=== PATIENT | female | born 1980 | race Asian ===

== ENCOUNTER 2017-02-20 06:11 | Inpatient (IN) | payer OTHER ==
[2017-02-20] MEDS ORDERED: OXYTOCIN* 10 UNITS/ML 1 ML VIAL IM ONE (07:06)
[2017-02-20] MEDS ORDERED: Varicella Virus Vaccine Live* 0.5 ML VIAL SUBCUT ONE (07:06)
[2017-02-20] MEDS ORDERED: Acetaminophen TAB* 325 MG PO PRN (07:06)
[2017-02-20] MEDS ORDERED: Dibucaine 1% 28.35 GM TUBE PR PRN (07:06)
[2017-02-20] MEDS ORDERED: Glycerin ADULT SUPP PR PRN (07:06)
[2017-02-20] MEDS ORDERED: Witch Hazel PAD* JAR TOPICAL PRN (07:06)
[2017-02-20] MEDS: Docusate CAP* 100 MG PO SCH ×3 (12:16→20:58)
[2017-02-20] MEDS: Ibuprofen TAB* 600 MG PO PRN ×2 (12:17→19:24)
[2017-02-20] MEDS: Simethicone TAB* 80 MG TAB.CHEW PO SCH ×2 (13:12→13:13)
[2017-02-21 06:59] LABS: Hematocrit 33 % (35-47); Hemoglobin 11.1 g/dl (12.0-16.0); Mean Corpuscular HGB Conc 34 g/dl (31-36); Mean Corpuscular Hemoglobin 31 pg (27-31); Mean Corpuscular Volume 90 fL (80-97); Mean Platelet Volume 8 um3 (7.4-10.4); Red Blood Count 3.63 10^6/ul (4.0-5.4); Red Cell Distribution Width 13 % (10.5-15); White Blood Count 12.9 10^3/ul (3.5-10.8)
[2017-02-21] MEDS: Ibuprofen TAB* 600 MG PO PRN ×2 (08:09→21:21)
[2017-02-21] MEDS: Docusate CAP* 100 MG PO SCH ×3 (08:09→21:21)
[2017-02-21] MEDS ORDERED: Ferrous Gluconate TAB* 324 MG TAB PO SCH (09:00)
[2017-02-21] MEDS: predniSONE TAB* 20 MG PO SCH (10:55)
[2017-02-21] MEDS ORDERED: Artificial Tears* 15 ML BTL BOTH EYES PRN (11:50)
[2017-02-22 08:23] VITALS: BP 113/69
[2017-02-22] MEDS: Docusate CAP* 100 MG PO SCH (09:14)
[2017-02-22] MEDS: Ibuprofen TAB* 600 MG PO PRN (09:15)
[2017-02-22] MEDS: predniSONE TAB* 20 MG PO SCH (09:25)
== END 2017-02-22 10:42 | disposition home or self-care (01) | DRG 775 ==
LOC: MCHOBOUT 06:11 → MCHOB 06:19
PROVIDERS: ADMIT Obstetrics & Gynecology; ATTEND Obstetrics & Gynecology
PROC: 10E0XZZ Delivery of Products of Conception, External Approach (ICD-10-PCS; principal; 2017-02-20)
DX: O24.429 Gestational diabetes mellitus in childbirth, unspecified control (principal); G51.0 Bell's palsy; Z3A.38 38 weeks gestation of pregnancy; Z37.0 Single live birth
CPT/HCPCS: 36415; 85025; A9270-GY; J7512

== ENCOUNTER 2017-05-29 08:46 | Emergency (ER) | payer OTHER ==
[2017-05-29 08:58] VITALS: BP 95/66
--- NOTE | 2017-05-29 09:14 | UC ---
FLU HPI - HPI Summary HPI Summary: c/o nasal congestion and discharge, dry cough and malaise for the past week. States other family members were infected with influenza. She states she took the vaccine in December. Yesterday she had a fever 101.3F and started having left breast pain she is her 3 month old baby. States 2 months ago she had mastitis on the same breast and she received antibiotics. - History of Current Complaint Chief Complaint: UCGeneralIllness Stated Complaint: FEVER Time Seen by Provider: 05/29/17 09:04 Hx Obtained From: Patient Hx Last Menstrual Period: breat feeding Onset/Duration: Sudden Onset, Lasting Days Severity Currently: Moderate Severity Initially: Mild Pain Intensity: 4 Associated Signs & Symptoms: Positive: Fever, Myalgia - Risk Factors Influenza Risk Factors: Negative - Allergy/Home Medications Allergies/Adverse Reactions: Allergies Allergy/AdvReac Type Severity Reaction Status Date / Time MS Penicillins [Penicillins] Allergy Hives Verified 05/29/17 08:53 PMH/Surg Hx/FS Hx/Imm Hx Previously Healthy: Yes - Surgical History Surgical History: Yes Surgery Procedure, Year, and Place: eye surgery - Social History Alcohol Use: None Substance Use Type: None Smoking Status (MU): Never Smoked Tobacco - Immunization History Most Recent Influenza Vaccination: 01/2017 Most Recent Pneumonia Vaccination: none Review of Systems Constitutional: Fever ENT: Nasal Discharge Respiratory: Cough Musculoskeletal: Edema, Other: - left breast pain All Other Systems Reviewed And Are Negative: Yes Physical Exam Triage Information Reviewed: Yes Appearance: Well-Appearing Vital Signs: Initial Vital Signs Temp 98.7 F 05/29/17 08:54 Pulse 103 05/29/17 08:54 Resp 20 05/29/17 08:54 BP 95/66 05/29/17 08:54 Pulse Ox 100 05/29/17 08:54 Vital Signs Reviewed: Yes Eye Exam: Normal ENT Exam: Normal Dental Exam: Normal Neck exam: Normal Respiratory Exam: Normal Cardiovascular Exam: Normal Abdominal Exam: Normal Bowel Sounds: Positive: Present Physical Exam Vital Signs On Initial Exam: Initial Vitals Temp Pulse Resp BP Pulse Ox 98.7 F 103 20 95/66 100 05/29/17 08:54 05/29/17 08:54 05/29/17 08:54 05/29/17 08:54 05/29/17 08:54 Flu Course/Dx - Course Course Of Treatment: Positive for Influenza B. Symptoms have been present for a week, patient appears well hydrated and not septic, patient instructed to continues with oral fluids and hand hygiene. Await results to determine treatment for left breast tenderness r/o mastitis. Continue breast feeding and express milk, warm compresses on site of pain - Differential Dx/Diagnosis Provider Diagnoses: left mastalgia. Influenza B Discharge - Discharge Plan Condition: Stable Disposition: HOME Patient Education Materials: and Breast Engorgement (ED), Influenza (DC) Referrals: Shyanne Renee MD [Primary Care Provider] - Images Front/Back of Body, Lg ([place]): 1 - tenderness and induration left breast
[2017-05-29 14:59] LABS: ABS Basophils 0 10^3/ul (0-0.2); ABS Eosinophils 0 10^3/ul (0-0.6); ABS Monocytes 0.7 10^3/ul (0-0.8); ABS Neutrophils 8.8 10^3/ul (1.5-7.7); ABS Nucleated RBC 0 10^3/ul; Eosinophil % 0.3 % (0-6); Hematocrit 39 % (35-47); Hemoglobin 12.8 g/dl (12.0-16.0); Lymphocyte % 9.1 % (25-47); Mean Corpuscular HGB Conc 33 g/dl (31-36); Mean Corpuscular Hemoglobin 29 pg (27-31); Mean Corpuscular Volume 87 fL (80-97); Mean Platelet Volume 9 um3 (7.4-10.4); Nucleated Red Blood Cells % 0; Platelet Count 206 10^3/ul (150-450); Red Blood Count 4.44 10^6/ul (4.0-5.4); Red Cell Distribution Width 13 % (10.5-15); White Blood Count 10.5 10^3/ul (3.5-10.8)
== END 2017-05-29 10:43 | disposition home or self-care (01) ==
LOC: UCEAST 08:46
DX: J32.9 Chronic sinusitis, unspecified (principal)
CPT/HCPCS: 36415; 81025; 85025; 87502; 99211; G0463